=== PATIENT | female | born 1985 | race Two or more races ===

== ENCOUNTER 2017-01-06 09:10 | Observation (INO) | payer MEDICAID | END 2017-01-06 10:55 | disposition home or self-care (01) | DRG 566 | LOC: LDRP 09:10 → EDUNIT# 09:10 | PROVIDERS: ADMIT Specialist; ATTEND Specialist | DX: O24.410 Gestational diabetes mellitus in pregnancy, diet controlled (principal); Z3A.00 Weeks of gestation of pregnancy not specified | CPT/HCPCS: 76818; 81002; 82948; 82962; G0378 ==

== ENCOUNTER 2017-01-08 13:25 | Observation (INO) | payer MEDICAID | END 2017-01-08 15:15 | disposition home or self-care (01) | DRG 566 | LOC: EDUNIT# 13:25 → LDRP 13:25 | PROVIDERS: ADMIT Obstetrics & Gynecology; ATTEND Obstetrics & Gynecology | DX: O24.419 Gestational diabetes mellitus in pregnancy, unspecified control (principal); Z3A.30 30 weeks gestation of pregnancy | CPT/HCPCS: 59025; 76818; 81002; 82948; 82962; G0378 ==

== ENCOUNTER 2017-01-14 09:00 | Observation (INO) | payer MEDICAID | END 2017-01-14 11:05 | disposition home or self-care (01) | DRG 566 | LOC: LDRP 09:00 | PROVIDERS: ADMIT Specialist; ATTEND Specialist | DX: O24.419 Gestational diabetes mellitus in pregnancy, unspecified control (principal); O99.330 Smoking (tobacco) complicating pregnancy, unspecified trimester; Z3A.00 Weeks of gestation of pregnancy not specified | CPT/HCPCS: 59025; 76818; 81002; G0378 ==

== ENCOUNTER 2017-01-18 09:30 | Observation (INO) | payer MEDICAID | END 2017-01-18 11:30 | disposition home or self-care (01) | DRG 566 | LOC: LDRP 09:30 | PROVIDERS: ADMIT Specialist; ATTEND Specialist | DX: O24.419 Gestational diabetes mellitus in pregnancy, unspecified control (principal); Z79.4 Long term (current) use of insulin; Z3A.31 31 weeks gestation of pregnancy | CPT/HCPCS: 59025; 76818; 81002; 82962; G0378 ==

== ENCOUNTER 2017-01-31 09:30 | Observation (INO) | payer MEDICAID, OTHER | END 2017-01-31 11:10 | disposition home or self-care (01) | DRG 566 | LOC: LDRP 09:30 | PROVIDERS: ADMIT Obstetrics & Gynecology; ATTEND Obstetrics & Gynecology | DX: O24.419 Gestational diabetes mellitus in pregnancy, unspecified control (principal); Z3A.00 Weeks of gestation of pregnancy not specified | CPT/HCPCS: 59025; 76818; 81002; 82962; G0378 ==

== ENCOUNTER 2017-02-03 11:05 | Observation (INO) | payer MEDICAID | END 2017-02-03 12:50 | disposition home or self-care (01) | DRG 566 | LOC: LDRP 11:05 → EDUNIT# 11:05 | PROVIDERS: ADMIT Specialist; ATTEND Specialist | DX: O24.419 Gestational diabetes mellitus in pregnancy, unspecified control (principal); Z3A.33 33 weeks gestation of pregnancy | CPT/HCPCS: 59025; 76818; 81002; 82948; 82962; G0378 ==

== ENCOUNTER 2017-02-06 11:50 | Observation (INO) | payer MEDICAID, OTHER ==
[~2017-02-06] VITALS: Ht 167.6 cm; Wt 111.6 kg
[2017-02-06] MEDS ORDERED: LACTATED RINGER'S 1,000 ML IV ONE (13:00)
[2017-02-06] MEDS ORDERED: NIFEdipine 10 MG CAP PO ONE (13:00)
[2017-02-06] MEDS ORDERED: SODIUM CHLORIDE 0.9% 1,000 ML IV ONE (13:00)
[2017-02-06] MEDS ORDERED: NIFEdipine 10 MG CAP ONE (13:29)
[2017-02-06 13:47] LABS: Urine Bilirubin Negative (Negative); Urine Blood TRACE /uL (Negative); Urine Color Yellow (Yellow); Urine Glucose Normal (Normal); Urine Ketone Negative (Negative); Urine Nitrite Negative (Negative); Urine RBC 2 /hpf (0 - 4); Urine Squamous Epithelial Cell FEW /hpf (<5); Urine Urobilinogen Normal (Negative); Urine pH 6.5 (5.0-8.0)
== END 2017-02-06 14:45 | disposition home or self-care (01) | DRG 566 ==
LOC: LDRP 11:50
PROVIDERS: ADMIT Specialist; ATTEND Specialist
DX: O24.419 Gestational diabetes mellitus in pregnancy, unspecified control (principal); Z79.4 Long term (current) use of insulin; Z3A.34 34 weeks gestation of pregnancy
CPT/HCPCS: 59025; 76818; 81001; 81002; 82948; 82962; 96360; G0378; J7030

== ENCOUNTER 2017-02-10 11:21 | Observation (INO) | payer MEDICAID, OTHER | END 2017-02-10 13:20 | disposition home or self-care (01) | DRG 566 | LOC: LDRP 11:21 | PROVIDERS: ADMIT Specialist; ATTEND Specialist | DX: O24.419 Gestational diabetes mellitus in pregnancy, unspecified control (principal); Z3A.34 34 weeks gestation of pregnancy | CPT/HCPCS: 59025; 76818; 81002; G0378 ==

== ENCOUNTER 2017-02-14 09:50 | Observation (INO) | payer MEDICAID | END 2017-02-14 12:00 | disposition home or self-care (01) | DRG 566 | LOC: LDRP 09:50 | PROVIDERS: ADMIT Obstetrics & Gynecology; ATTEND Obstetrics & Gynecology | DX: O24.419 Gestational diabetes mellitus in pregnancy, unspecified control (principal); Z3A.35 35 weeks gestation of pregnancy | CPT/HCPCS: 59025; 76818; 81002; 82962; G0378 ==

== ENCOUNTER 2017-02-18 14:00 | Observation (INO) | payer MEDICAID | END 2017-02-18 16:45 | disposition home or self-care (01) | DRG 566 | LOC: LDRP 14:00 | PROVIDERS: ADMIT Specialist; ATTEND Specialist | DX: O24.419 Gestational diabetes mellitus in pregnancy, unspecified control (principal); Z3A.00 Weeks of gestation of pregnancy not specified | CPT/HCPCS: 59025; 76818; 81002; 82962; G0378 ==

== ENCOUNTER 2017-02-21 17:05 | Observation (INO) | payer MEDICAID ==
[2017-02-21 20:00] LABS: Basophils # (auto) 0 uL; Basophils % (auto) 0.2 % (0.0-2.0); Eosinophils # (auto) 0 uL; Eosinophils % (auto) 0.1 % (0.0-7.0); Hematocrit 38.7 % (36.0-46.0); Hemoglobin 13.2 g/dL (12.2-16.2); Lymphocytes # (auto) 2.3 uL; Lymphocytes % (auto) 24.2 % (10.0-50.0); Mean Corpuscular Hemoglobin 29.7 pg (28.0-32.0); Mean Corpuscular Volume 87.3 fL (80.0-100.0); Mean Platelet Volume 9.4 fL (7.4-10.4); Monocytes # (auto) 0.5 uL; Monocytes % (auto) 5.7 % (0.0-12.0); Neutrophils # (auto) 6.6 uL; Neutrophils % (auto) 69.8 % (37.0-80.0); Platelet Count (auto) 223 10^3/uL (140-450); Red Cell Distribution Width 17.8 % (11.6-16.0); White Blood Cell 9.4 10^3/uL (4.4-10.8)
[2017-02-21 20:09] LABS: Urine Bilirubin Negative (Negative); Urine Blood TRACE /uL (Negative); Urine Color Colorless (Yellow); Urine Glucose Normal (Normal); Urine Ketone Negative (Negative); Urine Nitrite Negative (Negative); Urine RBC 1 /hpf (0 - 4); Urine Squamous Epithelial Cell FEW /hpf (<5); Urine Urobilinogen Normal (Negative); Urine pH 6.5 (5.0-8.0)
[2017-02-21 20:31] LABS: Partial Thromboplastin Time 26.6 sec (22.64-33.71); Prothrombin Time 9.7 sec (9.37-12.3)
[2017-02-21 20:32] LABS: INR 0.89 (0.9-1.15)
[2017-02-21 20:34] LABS: Albumin 2.7 g/dL (3.4-5.0); BUN/Creatinine Ratio 15.9; Bilirubin, Total 0.2 mg/dL (0.2-1.0); Potassium 3.9 mmol/L (3.5-5.1); Uric Acid 5.8 mg/dL (2.6-6.0)
== END 2017-02-21 21:15 | disposition home or self-care (01) | DRG 566 ==
LOC: LDRP 17:05
PROVIDERS: ADMIT Specialist; ATTEND Specialist
DX: O24.419 Gestational diabetes mellitus in pregnancy, unspecified control (principal); Z3A.36 36 weeks gestation of pregnancy
CPT/HCPCS: 36415; 59025; 76818; 80053; 81001; 81002; 82948; 82962; 84550; 85025; 85362; 85379; 85610; 85730; G0378

== ENCOUNTER 2017-02-26 11:15 | Observation (INO) | payer MEDICAID, OTHER | END 2017-02-26 12:45 | disposition home or self-care (01) | DRG 566 | LOC: LDRP 11:15 | PROVIDERS: ADMIT Specialist; ATTEND Specialist | DX: O24.419 Gestational diabetes mellitus in pregnancy, unspecified control (principal); O62.9 Abnormality of forces of labor, unspecified; Z3A.00 Weeks of gestation of pregnancy not specified | CPT/HCPCS: 59025; 76818; 81002; 82962; G0378 ==

== ENCOUNTER 2017-02-28 19:00 | Observation (INO) | payer OTHER ==
[2017-02-28 20:55] LABS: Basophils # (auto) 0 uL; Basophils % (auto) 0.2 % (0.0-2.0); Eosinophils # (auto) 0 uL; Eosinophils % (auto) 0.4 % (0.0-7.0); Hematocrit 34.5 % (36.0-46.0); Hemoglobin 11.8 g/dL (12.2-16.2); Lymphocytes # (auto) 1.7 uL; Mean Corpuscular Hemoglobin 30.1 pg (28.0-32.0); Mean Corpuscular Hgb Conc. 34.3 g/dL (32.0-36.0); Mean Corpuscular Volume 87.9 fL (80.0-100.0); Mean Platelet Volume 9.7 fL (7.4-10.4); Monocytes # (auto) 0.5 uL; Monocytes % (auto) 6.2 % (0.0-12.0); Neutrophils % (auto) 72.2 % (37.0-80.0); Platelet Count (auto) 183 10^3/uL (140-450); Red Cell Distribution Width 18.1 % (11.6-16.0); White Blood Cell 8.3 10^3/uL (4.4-10.8)
[2017-02-28 21:06] LABS: Albumin 2.4 g/dL (3.4-5.0); BUN/Creatinine Ratio 19.4; Bilirubin, Total 0.2 mg/dL (0.2-1.0); Calcium 8.6 mg/dL (8.5-10.1); Potassium 4.1 mmol/L (3.5-5.1); Uric Acid 5.4 mg/dL (2.6-6.0)
[2017-02-28 21:09] LABS: INR 0.91 (0.9-1.15); Partial Thromboplastin Time 28.2 sec (22.64-33.71); Prothrombin Time 9.9 sec (9.37-12.3)
[2017-02-28 21:12] LABS: Urine Bilirubin Negative (Negative); Urine Blood TRACE /uL (Negative); Urine Color Yellow (Yellow); Urine Glucose Normal (Normal); Urine Ketone Negative (Negative); Urine Nitrite Negative (Negative); Urine RBC 1 /hpf (0 - 4); Urine Squamous Epithelial Cell FEW /hpf (<5); Urine Urobilinogen Normal (Negative); Urine pH 6.5 (5.0-8.0)
== END 2017-02-28 22:27 | disposition home or self-care (01) | DRG 566 ==
LOC: LDRP 19:00
PROVIDERS: ADMIT Obstetrics & Gynecology; ATTEND Obstetrics & Gynecology
DX: O62.9 Abnormality of forces of labor, unspecified (principal); O26.893 Other specified pregnancy related conditions, third trimester; R51 Headache; Z3A.37 37 weeks gestation of pregnancy
CPT/HCPCS: 36415; 59025; 76818; 80053; 81001; 81002; 82948; 82962; 83036; 84550; 85025; 85610; 85730; G0378

== ENCOUNTER 2017-03-03 11:00 | Observation (INO) | payer OTHER ==
[~2017-03-03] VITALS: Ht 167.6 cm; Wt 115.2 kg
[2017-03-03] MEDS ORDERED: PREN-96 PO (11:22)
[2017-03-03] MEDS ORDERED: INSLANTI SC ×2 (11:22)
[2017-03-03] MEDS ORDERED: GLYB5TAB8 PO (11:23)
[2017-03-03 11:57] LABS: Urine Bilirubin Negative (Negative); Urine Color Yellow (Yellow); Urine Glucose Normal (Normal); Urine Ketone Negative (Negative); Urine Mucus FEW (None Seen); Urine Nitrite Negative (Negative); Urine RBC 4 /hpf (0 - 4); Urine Squamous Epithelial Cell MOD /hpf (<5); Urine Urobilinogen Normal (Negative)
[2017-03-03 12:05] LABS: Urine Blood 2+ /uL (Negative)
== END 2017-03-03 12:45 | disposition home or self-care (01) | DRG 566 ==
LOC: LDRP 11:00
PROVIDERS: ADMIT Specialist; ATTEND Specialist
DX: O24.419 Gestational diabetes mellitus in pregnancy, unspecified control (principal); O36.8130 Decreased fetal movements, third trimester, not applicable or unspecified; Z3A.37 37 weeks gestation of pregnancy
CPT/HCPCS: 59025; 76818; 81001; 81002; 82962; 87086; G0378

== ENCOUNTER 2017-03-04 17:10 | Observation (INO) | payer OTHER ==
[~2017-03-04] VITALS: Ht 167.6 cm; Wt 116.6 kg
[~2017-03-04 17:10] MED LIST: GLYB5TAB8 PO; INSLANTI SC; PREN-96 PO
[2017-03-04] MEDS ORDERED: ACETAMINOPHEN 325 MG TAB PO PRN (18:00)
[2017-03-04 19:02] LABS: Urine Bilirubin Negative (Negative); Urine Color Yellow (Yellow); Urine Glucose Normal (Normal); Urine Ketone Negative (Negative); Urine Mucus FEW (None Seen); Urine Nitrite Negative (Negative); Urine RBC 4 /hpf (0 - 4); Urine Squamous Epithelial Cell MOD /hpf (<5); Urine Urobilinogen Normal (Negative); Urine pH 6.5 (5.0-8.0)
[2017-03-04 19:03] LABS: Urine Blood 1+ /uL (Negative)
== END 2017-03-04 20:20 | disposition home or self-care (01) | DRG 566 ==
LOC: LDRP 17:10
PROVIDERS: ADMIT Specialist; ATTEND Specialist
DX: O26.893 Other specified pregnancy related conditions, third trimester (principal); O24.419 Gestational diabetes mellitus in pregnancy, unspecified control; R51 Headache; Z3A.38 38 weeks gestation of pregnancy
CPT/HCPCS: 59025; 81001; 81002; 82948; 82962; G0378

== ENCOUNTER 2017-03-07 10:05 | Observation (INO) | payer OTHER | END 2017-03-07 11:25 | disposition home or self-care (01) | DRG 566 | LOC: LDRP 10:05 | PROVIDERS: ADMIT Specialist; ATTEND Specialist | DX: O24.419 Gestational diabetes mellitus in pregnancy, unspecified control (principal); O26.893 Other specified pregnancy related conditions, third trimester; O36.8130 Decreased fetal movements, third trimester, not applicable or unspecified; O62.9 Abnormality of forces of labor, unspecified; R11.0 Nausea; Z3A.38 38 weeks gestation of pregnancy | CPT/HCPCS: 59025; 76818; 81002; 82948; 82962; G0378 ==

== ENCOUNTER 2017-03-09 09:28 | Observation (INO) | payer OTHER | END 2017-03-09 11:30 | disposition home or self-care (01) | DRG 566 | LOC: LDRP 09:28 | PROVIDERS: ADMIT Specialist; ATTEND Specialist | DX: O24.419 Gestational diabetes mellitus in pregnancy, unspecified control (principal); O62.9 Abnormality of forces of labor, unspecified; Z3A.38 38 weeks gestation of pregnancy | CPT/HCPCS: 59025; 76818; 81002; G0378 ==

== ENCOUNTER 2018-04-30 07:45 | Observation (INO) | payer MEDICAID ==
[~2018-04-30 07:45] MED LIST changes: -INSLANTI SC
== END 2018-04-30 09:20 | disposition home or self-care (01) | DRG 566 ==
LOC: LDRP 07:45
PROVIDERS: ADMIT Obstetrics & Gynecology; ATTEND Obstetrics & Gynecology
DX: O24.419 Gestational diabetes mellitus in pregnancy, unspecified control (principal); O21.2 Late vomiting of pregnancy; Z3A.31 31 weeks gestation of pregnancy
CPT/HCPCS: 59025; 76818; 81002; 82948; 82962; G0378

== ENCOUNTER 2018-05-03 07:48 | Observation (INO) | payer MEDICAID ==
[2018-05-03] MEDS ORDERED: GLYB1.257 PO (08:02)
== END 2018-05-03 08:40 | disposition home or self-care (01) | DRG 566 ==
LOC: LDRP 07:48
PROVIDERS: ADMIT Obstetrics & Gynecology; ATTEND Obstetrics & Gynecology
DX: O24.419 Gestational diabetes mellitus in pregnancy, unspecified control (principal); Z3A.32 32 weeks gestation of pregnancy
CPT/HCPCS: 59025; 76818; 81002; 82948; G0378

== ENCOUNTER 2018-05-08 08:08 | Observation (INO) | payer MEDICAID ==
[~2018-05-08 08:08] MED LIST changes: +GLYB1.257 PO; -GLYB5TAB8 PO
== END 2018-05-08 11:00 | disposition home or self-care (01) | DRG 566 ==
LOC: LDRP 08:08
PROVIDERS: ADMIT Obstetrics & Gynecology; ATTEND Obstetrics & Gynecology
DX: O24.419 Gestational diabetes mellitus in pregnancy, unspecified control (principal); Z3A.33 33 weeks gestation of pregnancy
CPT/HCPCS: 59025; 76818; 81002; 82948; 82962; G0378

== ENCOUNTER 2018-05-11 08:19 | Observation (INO) | payer MEDICAID | END 2018-05-11 10:20 | disposition home or self-care (01) | DRG 566 | LOC: LDRP 08:19 | PROVIDERS: ADMIT Specialist; ATTEND Specialist | DX: O24.419 Gestational diabetes mellitus in pregnancy, unspecified control (principal); Z3A.33 33 weeks gestation of pregnancy | CPT/HCPCS: 59025; 76818; 81002; 82962; G0378 ==

== ENCOUNTER 2018-05-14 07:50 | Observation (INO) | payer MEDICAID | END 2018-05-14 09:40 | disposition home or self-care (01) | DRG 566 | LOC: LDRP 07:50 | PROVIDERS: ADMIT Obstetrics & Gynecology; ATTEND Obstetrics & Gynecology | DX: O24.419 Gestational diabetes mellitus in pregnancy, unspecified control (principal); Z3A.33 33 weeks gestation of pregnancy | CPT/HCPCS: 59025; 76818; 81002; 82948; 82962; G0378 ==

== ENCOUNTER 2018-05-17 08:00 | Observation (INO) | payer MEDICAID | END 2018-05-17 09:00 | disposition home or self-care (01) | DRG 566 | LOC: LDRP 08:00 | PROVIDERS: ADMIT Obstetrics & Gynecology; ATTEND Obstetrics & Gynecology | DX: O24.419 Gestational diabetes mellitus in pregnancy, unspecified control (principal); Z3A.34 34 weeks gestation of pregnancy | CPT/HCPCS: 59025; 76818; 81002; 82948; G0378 ==

== ENCOUNTER 2018-05-21 08:50 | Observation (INO) | payer MEDICAID | END 2018-05-21 10:40 | disposition home or self-care (01) | DRG 566 | LOC: LDRP 08:50 | PROVIDERS: ADMIT Specialist; ATTEND Specialist | DX: O24.419 Gestational diabetes mellitus in pregnancy, unspecified control (principal); Z3A.34 34 weeks gestation of pregnancy | CPT/HCPCS: 59025; 76818; 81002; 82962; G0378 ==

== ENCOUNTER 2018-05-25 10:02 | Observation (INO) | payer MEDICAID ==
[2018-05-25 11:35] LABS: Urine Bacteria MANY /hpf (None Seen); Urine Blood 2+ /uL (Negative); Urine Budding Yeast FEW /hpf (None Seen); Urine Mucus FEW (None Seen); Urine Specific Gravity 1.017 (1.001-1.035); Urine WBC 134 /hpf (0 - 5)
== END 2018-05-25 11:43 | disposition home or self-care (01) | DRG 566 ==
LOC: LDRP 10:02
PROVIDERS: ADMIT Specialist; ATTEND Specialist
DX: O24.419 Gestational diabetes mellitus in pregnancy, unspecified control (principal); Z3A.00 Weeks of gestation of pregnancy not specified
CPT/HCPCS: 59025; 76818; 81001; 81002; 82948; 82962; G0378

== ENCOUNTER 2018-05-28 07:45 | Observation (INO) | payer MEDICAID | END 2018-05-28 12:45 | disposition home or self-care (01) | DRG 566 | LOC: LDRP 07:45 | PROVIDERS: ADMIT Obstetrics & Gynecology; ATTEND Obstetrics & Gynecology | DX: O24.419 Gestational diabetes mellitus in pregnancy, unspecified control (principal); Z3A.35 35 weeks gestation of pregnancy | CPT/HCPCS: 59025; 76818; 81002; 82948; G0378 ==

== ENCOUNTER 2018-05-29 07:35 | Observation (INO) | payer MEDICAID | END 2018-05-29 10:40 | disposition home or self-care (01) | DRG 566 | LOC: LDRP 07:35 | PROVIDERS: ADMIT Specialist; ATTEND Specialist | DX: O24.419 Gestational diabetes mellitus in pregnancy, unspecified control (principal); O62.9 Abnormality of forces of labor, unspecified; Z3A.36 36 weeks gestation of pregnancy | CPT/HCPCS: 59025; 76818; 81002; G0378 ==

== ENCOUNTER 2018-05-31 10:30 | Observation (INO) | payer MEDICAID ==
[2018-05-31] MEDS ORDERED: GLYB1.257 PO (11:21)
== END 2018-05-31 11:35 | disposition home or self-care (01) | DRG 566 ==
LOC: LDRP 10:30
PROVIDERS: ADMIT Obstetrics & Gynecology; ATTEND Obstetrics & Gynecology
DX: O24.419 Gestational diabetes mellitus in pregnancy, unspecified control (principal); O26.893 Other specified pregnancy related conditions, third trimester; R10.30 Lower abdominal pain, unspecified; Z3A.36 36 weeks gestation of pregnancy
CPT/HCPCS: 59025; 76818; 81002; G0378

== ENCOUNTER 2018-06-03 10:00 | Observation (INO) | payer MEDICAID ==
[2018-06-03 10:30] LABS: Basophils # (auto) 0 uL; Eosinophils # (auto) 0 uL; Eosinophils % (auto) 0.4 % (0.0-7.0); Hematocrit 38.9 % (36.0-46.0); Hemoglobin 13.1 g/dL (12.2-16.2); Lymphocytes # (auto) 1.8 uL; Lymphocytes % (auto) 20.5 % (10.0-50.0); Mean Corpuscular Hemoglobin 30.7 pg (28.0-32.0); Mean Corpuscular Hgb Conc. 33.6 g/dL (32.0-36.0); Mean Corpuscular Volume 91.1 fL (80.0-100.0); Monocytes # (auto) 0.5 uL; Neutrophils # (auto) 6.4 uL; Neutrophils % (auto) 73.1 % (37.0-80.0); Platelet Count (auto) 171 10^3/uL (140-450); Red Blood Cells 4.27 10^6/uL (4.0-5.20); Red Cell Distribution Width 16.3 % (11.8-14.3); White Blood Cell 8.8 10^3/uL (4.4-10.8)
== END 2018-06-03 11:45 | disposition home or self-care (01) | DRG 566 ==
LOC: LAB 10:00 → LDRP 10:26
PROVIDERS: ADMIT Specialist; ATTEND Specialist
DX: O24.419 Gestational diabetes mellitus in pregnancy, unspecified control (principal); Z3A.00 Weeks of gestation of pregnancy not specified
CPT/HCPCS: 36415; 59025; 76818; 81002; 82948; 82962; 85025; 87081; G0378

== ENCOUNTER 2018-06-06 14:04 | Observation (INO) | payer MEDICAID | END 2018-06-06 15:30 | disposition home or self-care (01) | DRG 566 | LOC: LDRP 14:04 | PROVIDERS: ADMIT Specialist; ATTEND Specialist | DX: O24.419 Gestational diabetes mellitus in pregnancy, unspecified control (principal); O62.9 Abnormality of forces of labor, unspecified; Z3A.37 37 weeks gestation of pregnancy | CPT/HCPCS: 59025; 76818; 81002; 82962; G0378 ==

== ENCOUNTER 2018-06-09 18:33 | Inpatient (IN) | payer MEDICAID ==
[~2018-06-09] VITALS: Ht 167.6 cm; Wt 112.1 kg
[2018-06-09] MEDS ORDERED: LACTATED RINGER'S 1,000 ML IV ONE (19:06)
[2018-06-09] MEDS ORDERED: LACTATED RINGER'S 1,000 ML IV SCH ×2 (19:06→20:52)
[2018-06-09 19:48] LABS: Basophils # (auto) 0 uL; Basophils % (auto) 0.2 % (0.0-2.0); Eosinophils # (auto) 0 uL; Eosinophils % (auto) 0.1 % (0.0-7.0); Hematocrit 35.4 % (36.0-46.0); Hemoglobin 12.1 g/dL (12.2-16.2); Lymphocytes # (auto) 1.3 uL; Lymphocytes % (auto) 13.7 % (10.0-50.0); Mean Corpuscular Hemoglobin 31.4 pg (28.0-32.0); Mean Corpuscular Hgb Conc. 34.2 g/dL (32.0-36.0); Mean Corpuscular Volume 91.7 fL (80.0-100.0); Monocytes # (auto) 0.6 uL; Monocytes % (auto) 6.2 % (0.0-12.0); Neutrophils # (auto) 7.6 uL; Neutrophils % (auto) 79.8 % (37.0-80.0); Platelet Count (auto) 165 10^3/uL (140-450); Red Blood Cells 3.86 10^6/uL (4.0-5.20); Red Cell Distribution Width 16.7 % (11.8-14.3); White Blood Cell 9.5 10^3/uL (4.4-10.8)
[2018-06-09 20:03] LABS: Albumin 2.4 g/dL (3.4-5.0); BUN/Creatinine Ratio 16.5; Calcium 7.8 mg/dL (8.5-10.1); INR 0.9 (0.9-1.15); Partial Thromboplastin Time 25.2 sec (23.78-33.04); Potassium 4.1 mmol/L (3.5-5.1); Prothrombin Time 9.7 sec (9.27-12.13)
[2018-06-09 20:05] LABS: Bilirubin, Total 0.1 mg/dL (0.2-1.0); Total Protein 6.1 g/dL (6.4-8.2)
[2018-06-09] MEDS ORDERED: ACCU-CHEK COMFORT CURVE STRIP VI SCH (20:30)
[2018-06-09] MEDS ORDERED: LACT. RINGERS/OXYTOCIN 20UNITS 1,000 ML IV SCH (20:52)
[2018-06-09] MEDS ORDERED: METHYLERGONOVINE MALEATE 0.2 MG/ML AMP IM PRN (21:00)
[2018-06-09] MEDS ORDERED: PHISODERM TOP SOLN 240ML BTL TOP PRN (21:00)
[2018-06-09] MEDS ORDERED: LIDOCAINE 2% (LOCAL ANESTH.) PF 5ml SDV IJ ONE (21:00)
[2018-06-09] MEDS ORDERED: PROMETHAZINE HCL 25 MG/ML 1ML IV PRN (21:00)
[2018-06-09] MEDS ORDERED: WITCH HAZEL-GLYCERIN PAD TOP PRN (21:00)
[2018-06-09] MEDS ORDERED: PENICILLIN G POT 5MIL/D5 50ML 50 ML IV ONE (21:00)
[2018-06-09] MEDS ORDERED: DERMOPLAST 60ML BOTTLE TOP PRN (21:00)
[2018-06-09] MEDS ORDERED: NALBUPHINE HCL 10 MG/1ml INJECTION IM PRN (21:00)
[2018-06-09 21:28] LABS: Urine Bacteria FEW /hpf (None Seen); Urine Blood 3+ /uL (Negative); Urine Specific Gravity 1.017 (1.001-1.035); Urine WBC 521 /hpf (0 - 5)
[2018-06-10] MEDS ORDERED: ePHEDrine SULFATE 50 MG/ML AMP IV ONE (01:00)
[2018-06-10] MEDS ORDERED: fentaNYL CITRATE 100 MCG/2 ML VL IV ONE (01:00)
[2018-06-10] MEDS ORDERED: NALOXONE HCL 0.4 MG/ML VIAL IV ONE (01:00)
[2018-06-10] MEDS ORDERED: fentaNYL W ROPIVACAINE 150 ML EPI SCH (01:00)
[2018-06-10] MEDS ORDERED: PENICILLIN G POTASSIUM 2,500,000 UNITS in D5W 5% 50 ML IV SCH (01:00)
[2018-06-10] MEDS ORDERED: LIDOCAINE HCL 2 %PF INJ 10ML AMP IJ ONE (01:00)
[2018-06-10] MEDS ORDERED: LIDOCAINE 2% (LOCAL ANESTH.) PF 5ml SDV ONE (01:21)
[2018-06-10] MEDS ORDERED: LACT. RINGERS/OXYTOCIN 20UNITS 500 ML IV ONE (03:20)
[2018-06-10] MEDS ORDERED: ACETAMINOPHEN 325 MG TAB PO PRN (03:30)
[2018-06-10] MEDS ORDERED: LACT. RINGERS/OXYTOCIN 20UNITS 1,000 ML IV SCH (04:20)
[2018-06-10 07:05] VITALS: BP 118/67
[2018-06-10] MEDS: IBUPROFEN 600 MG TAB PO PRN ×2 (08:27→15:33)
[2018-06-10 11:00] VITALS: BP 117/56
[2018-06-10] MEDS: ACCU-CHEK COMFORT CURVE STRIP VI SCH ×3 (11:49→21:46)
[2018-06-10 15:15] VITALS: BP 126/64
[2018-06-10 19:00] VITALS: BP 114/61
[2018-06-10] MEDS ORDERED: TETANUS-DIPTH-ACEL PERTUSSIS 0.5ML SYRG IM ONE (19:15)
[2018-06-10 23:00] VITALS: BP 130/61
[2018-06-11 03:00] VITALS: BP 142/70
[2018-06-11] MEDS: IBUPROFEN 600 MG TAB PO PRN (03:07)
[2018-06-11 06:09] LABS: RPR Non Reactive (Non Reactive)
[2018-06-11 07:00] VITALS: BP 115/58
[2018-06-11] MEDS: ACCU-CHEK COMFORT CURVE STRIP VI SCH ×2 (07:11→11:30)
[2018-06-11 10:55] VITALS: BP 118/58
[2018-06-11 11:00] VITALS: BP 118/58
== END 2018-06-11 11:00 | disposition home or self-care (01) | DRG 541 ==
LOC: OBSVTOIN 18:33 → LDRP 18:33
PROVIDERS: ADMIT Obstetrics & Gynecology; ATTEND Obstetrics & Gynecology
PROC: 10E0XZZ Delivery of Products of Conception, External Approach (ICD-10-PCS; principal; 2018-06-10)
PROC: 0HQ9XZZ Repair Perineum Skin, External Approach (ICD-10-PCS; 2018-06-10)
PROC: 10D17ZZ Extraction of Products of Conception, Retained, Via Natural or Artificial Opening (ICD-10-PCS; 2018-06-10)
DX: O69.81X0 Labor and delivery complicated by cord around neck, without compression, not applicable or unspecified (principal); O24.92 Unspecified diabetes mellitus in childbirth; O73.0 Retained placenta without hemorrhage; O70.0 First degree perineal laceration during delivery; Z37.0 Single live birth; Z3A.37 37 weeks gestation of pregnancy
CPT/HCPCS: 36415; 59025; 59409; 76818; 76856; 80053; 81001; 81002; 82948; 82962; 85025; 85610; 85730; 86592; 86850; 86900; 86901; 90715; 96372; G0378; J2001; J2540; J2590; J3010; J7060

== ENCOUNTER 2020-04-24 13:29 | Observation (INO) | payer MEDICAID ==
[~2020-04-24 13:29] MED LIST changes: -GLYB1.257 PO
== END 2020-04-24 14:25 | disposition home or self-care (01) | DRG 566 ==
LOC: LDRP 13:29
PROVIDERS: ADMIT Specialist; ATTEND Specialist
DX: O36.8120 Decreased fetal movements, second trimester, not applicable or unspecified (principal); O09.512 Supervision of elderly primigravida, second trimester; Z3A.27 27 weeks gestation of pregnancy
CPT/HCPCS: 59025; 81002; 82948; G0378

== ENCOUNTER 2020-05-19 08:21 | Observation (INO) | payer MEDICAID ==
[2020-05-19] MEDS ORDERED: METF-370 PO (09:23)
[2020-05-19] MEDS ORDERED: GLYB2.5T8 PO (09:24)
== END 2020-05-19 09:22 | disposition home or self-care (01) ==
LOC: LDRP 08:21
PROVIDERS: ADMIT Obstetrics & Gynecology; ATTEND Obstetrics & Gynecology
DX: O24.414 Gestational diabetes mellitus in pregnancy, insulin controlled (principal); Z3A.31 31 weeks gestation of pregnancy
CPT/HCPCS: 59025; 76818; 81002; 82962; G0378

== ENCOUNTER 2020-05-23 08:22 | Observation (INO) | payer MEDICAID ==
[~2020-05-23 08:22] MED LIST changes: +GLYB2.5T8 PO; +METF-370 PO
== END 2020-05-23 10:10 | disposition home or self-care (01) ==
LOC: LDRP 08:22
PROVIDERS: ADMIT Specialist; ATTEND Specialist
DX: O24.419 Gestational diabetes mellitus in pregnancy, unspecified control (principal); Z79.84 Long term (current) use of oral hypoglycemic drugs; Z3A.31 31 weeks gestation of pregnancy
CPT/HCPCS: 59025; 76818; 81002; 82948; 82962; G0378

== ENCOUNTER 2020-05-26 08:22 | Observation (INO) | payer MEDICAID | END 2020-05-26 10:30 | disposition home or self-care (01) | LOC: LDRP 08:22 | PROVIDERS: ADMIT Specialist; ATTEND Specialist | DX: O24.419 Gestational diabetes mellitus in pregnancy, unspecified control (principal); Z3A.32 32 weeks gestation of pregnancy | CPT/HCPCS: 59025; 76818; 81002; 82948; 82962; G0378 ==

== ENCOUNTER 2020-05-30 10:14 | Observation (INO) | payer MEDICAID | END 2020-05-30 12:38 | disposition home or self-care (01) | LOC: LDRP 10:14 | PROVIDERS: ADMIT Specialist; ATTEND Specialist | DX: O24.415 Gestational diabetes mellitus in pregnancy, controlled by oral hypoglycemic drugs (principal); Z3A.32 32 weeks gestation of pregnancy | CPT/HCPCS: 59025; 76818; 81002; 82948; 82962; G0378 ==

== ENCOUNTER 2020-06-02 08:14 | Observation (INO) | payer MEDICAID | END 2020-06-02 09:30 | disposition home or self-care (01) | LOC: LDRP 08:14 | PROVIDERS: ADMIT Specialist; ATTEND Specialist | DX: O24.415 Gestational diabetes mellitus in pregnancy, controlled by oral hypoglycemic drugs (principal); Z3A.33 33 weeks gestation of pregnancy | CPT/HCPCS: 59025; 76818; 81002; 82948; 82962; G0378 ==

== ENCOUNTER 2020-06-06 12:43 | Observation (INO) | payer MEDICAID | END 2020-06-06 14:10 | disposition home or self-care (01) | LOC: LDRP 12:43 | PROVIDERS: ADMIT Specialist; ATTEND Specialist | DX: O24.415 Gestational diabetes mellitus in pregnancy, controlled by oral hypoglycemic drugs (principal); Z3A.33 33 weeks gestation of pregnancy | CPT/HCPCS: 59025; 76818; 81002; 82948; 82962; G0378 ==

== ENCOUNTER 2020-06-13 08:29 | Observation (INO) | payer MEDICAID ==
[~2020-06-13] VITALS: Ht 167.6 cm; Wt 114.3 kg
[2020-06-13] MEDS ORDERED: CEFTRIAXONE SODIUM 2 GM in D5W 5% 50 ML IV ONE (10:45)
== END 2020-06-13 13:33 | disposition home or self-care (01) ==
LOC: LDRP 08:29
PROVIDERS: ADMIT Specialist; ATTEND Specialist
DX: O24.415 Gestational diabetes mellitus in pregnancy, controlled by oral hypoglycemic drugs (principal); O26.893 Other specified pregnancy related conditions, third trimester; R82.998 Other abnormal findings in urine; O09.523 Supervision of elderly multigravida, third trimester; Z3A.34 34 weeks gestation of pregnancy
CPT/HCPCS: 59025; 76818; 81002; 82948; 82962; 96365; G0378; J0696; J7030; J7060; 96360

== ENCOUNTER 2020-06-16 08:10 | Observation (INO) | payer MEDICAID ==
[2020-06-16] MEDS ORDERED: CEPH250C PO (09:08)
== END 2020-06-16 09:30 | disposition home or self-care (01) ==
LOC: LDRP 08:10
PROVIDERS: ADMIT Specialist; ATTEND Specialist
DX: O24.415 Gestational diabetes mellitus in pregnancy, controlled by oral hypoglycemic drugs (principal); O62.9 Abnormality of forces of labor, unspecified; O26.893 Other specified pregnancy related conditions, third trimester; N89.8 Other specified noninflammatory disorders of vagina; Z3A.35 35 weeks gestation of pregnancy; Z79.899 Other long term (current) drug therapy
CPT/HCPCS: 59025; 76818; 81002; 82948; 82962; G0378

== ENCOUNTER 2020-06-20 08:22 | Observation (INO) | payer MEDICAID ==
[~2020-06-20] VITALS: Ht 167.6 cm; Wt 115.2 kg
[~2020-06-20 08:22] MED LIST changes: +CEPH250C PO
== END 2020-06-20 10:01 | disposition home or self-care (01) ==
LOC: LDRP 08:22
PROVIDERS: ADMIT Obstetrics & Gynecology; ATTEND Obstetrics & Gynecology
DX: O24.415 Gestational diabetes mellitus in pregnancy, controlled by oral hypoglycemic drugs (principal); O62.9 Abnormality of forces of labor, unspecified; Z3A.35 35 weeks gestation of pregnancy; Z79.899 Other long term (current) drug therapy
CPT/HCPCS: 59025; 76818; 81002; 82948; 82962; G0378

== ENCOUNTER 2020-06-23 08:42 | Observation (INO) | payer MEDICAID | END 2020-06-23 09:40 | disposition home or self-care (01) | LOC: LDRP 08:42 | PROVIDERS: ADMIT Obstetrics & Gynecology; ATTEND Obstetrics & Gynecology | DX: O24.419 Gestational diabetes mellitus in pregnancy, unspecified control (principal); Z3A.35 35 weeks gestation of pregnancy | CPT/HCPCS: 59025; 76818; 81002; 82948; 82962; G0378 ==

== ENCOUNTER 2020-06-27 08:50 | Observation (INO) | payer MEDICAID | END 2020-06-27 09:43 | disposition home or self-care (01) | LOC: LDRP 08:50 | PROVIDERS: ADMIT Specialist; ATTEND Specialist | DX: O24.419 Gestational diabetes mellitus in pregnancy, unspecified control (principal); Z3A.35 35 weeks gestation of pregnancy | CPT/HCPCS: 59025; 76818; 81002; 82948; 82962; G0378 ==

== ENCOUNTER 2020-06-30 09:25 | Observation (INO) | payer MEDICAID ==
[~2020-06-30 09:25] MED LIST changes: -CEPH250C PO
== END 2020-06-30 10:14 | disposition home or self-care (01) ==
LOC: LDRP 09:25
PROVIDERS: ADMIT Specialist; ATTEND Specialist
DX: O24.419 Gestational diabetes mellitus in pregnancy, unspecified control (principal); Z3A.36 36 weeks gestation of pregnancy
CPT/HCPCS: 59025; 76818; 81002; 82962; G0378

== ENCOUNTER 2020-07-02 12:13 | Observation (INO) | payer MEDICAID | END 2020-07-02 14:25 | disposition home or self-care (01) | LOC: LDRP 12:13 | PROVIDERS: ADMIT Obstetrics & Gynecology; ATTEND Obstetrics & Gynecology | DX: O24.419 Gestational diabetes mellitus in pregnancy, unspecified control (principal); O13.3 Gestational [pregnancy-induced] hypertension without significant proteinuria, third trimester; Z3A.36 36 weeks gestation of pregnancy | CPT/HCPCS: 59025; 76818; 81002; 82948; 82962; G0378 ==

== ENCOUNTER 2020-07-04 16:23 | Observation (INO) | payer MEDICAID ==
[2020-07-04 19:13] LABS: Urine Bacteria NONE SEEN /hpf (None Seen); Urine Blood 2+ /uL (Negative); Urine Mucus FEW (None Seen); Urine Specific Gravity 1.021 (1.001-1.035); Urine WBC 2 /hpf (0 - 5)
== END 2020-07-04 19:15 | disposition home or self-care (01) ==
LOC: LDRP 16:23
PROVIDERS: ADMIT Specialist; ATTEND Specialist
DX: O24.415 Gestational diabetes mellitus in pregnancy, controlled by oral hypoglycemic drugs (principal); O42.913 Preterm premature rupture of membranes, unspecified as to length of time between rupture and onset of labor, third trimester; O62.9 Abnormality of forces of labor, unspecified; O09.523 Supervision of elderly multigravida, third trimester; Z3A.36 36 weeks gestation of pregnancy
CPT/HCPCS: 59025; 76818; 81001; 81002; 82948; 82962; 84112; G0378; Q0114

== ENCOUNTER 2020-07-06 16:10 | Observation (INO) | payer MEDICAID | END 2020-07-06 17:55 | disposition home or self-care (01) | LOC: LDRP 16:10 | PROVIDERS: ADMIT Specialist; ATTEND Specialist | DX: O24.419 Gestational diabetes mellitus in pregnancy, unspecified control (principal); O12.13 Gestational proteinuria, third trimester; Z3A.37 37 weeks gestation of pregnancy | CPT/HCPCS: 59025; 76818; 81002; 82948; 82962; G0378 ==

== ENCOUNTER 2020-07-08 16:10 | Observation (INO) | payer MEDICAID ==
[2020-07-08 18:40] LABS: Creatinine Clearance, Urine 112.56 mL/min (75-115)
== END 2020-07-08 19:11 | disposition home or self-care (01) ==
LOC: LDRP 16:10
PROVIDERS: ADMIT Obstetrics & Gynecology; ATTEND Obstetrics & Gynecology
DX: O24.419 Gestational diabetes mellitus in pregnancy, unspecified control (principal); O13.3 Gestational [pregnancy-induced] hypertension without significant proteinuria, third trimester; Z3A.37 37 weeks gestation of pregnancy
CPT/HCPCS: 59025; 81002; 82575; 82948; 82962; 84156; G0378

== ENCOUNTER 2020-07-12 11:18 | Observation (INO) | payer MEDICAID ==
[2020-07-12 13:13] LABS: Urine Bacteria FEW /hpf (None Seen); Urine Blood 2+ /uL (Negative); Urine Mucus FEW (None Seen); Urine Specific Gravity 1.018 (1.001-1.035); Urine WBC 3 /hpf (0 - 5)
[2020-07-12 13:28] LABS: Albumin 2.7 g/dL (3.4-5.0); Calcium 8.4 mg/dL (8.5-10.1)
[2020-07-12 13:30] LABS: Protein, Urine 63.3 mg/dL (0.0-11.9)
[2020-07-12 13:32] LABS: BUN/Creatinine Ratio 19.3; Bilirubin, Total 0.2 mg/dL (0.2-1.0); Total Protein 6.6 g/dL (6.4-8.2); Uric Acid 5.6 mg/dL (2.6-6.0)
[2020-07-12 13:42] LABS: Basophils # (auto) 0 10 ^3/uL (0-0.2); Basophils % (auto) 0.2 % (0.0-2.0); Eosinophils # (auto) 0 10 ^3/uL (0-0.8); Eosinophils % (auto) 0.2 % (0.0-7.0); Hematocrit 37.5 % (36.0-46.0); Hemoglobin 12.8 g/dL (12.2-16.2); Lymphocytes # (auto) 1.3 10 ^3/uL (0.4-5.4); Lymphocytes % (auto) 16.6 % (10.0-50.0); Mean Corpuscular Hemoglobin 30.3 pg (28.0-32.0); Mean Corpuscular Hgb Conc. 34.2 g/dL (32.0-36.0); Mean Corpuscular Volume 88.7 fL (80.0-100.0); Monocytes # (auto) 0.5 10 ^3/uL (0-1.3); Monocytes % (auto) 5.7 % (0.0-12.0); Neutrophils # (auto) 6.2 10 ^3/uL (1.6-8.6); Neutrophils % (auto) 77.3 % (37.0-80.0); Platelet Count (auto) 158 10^3/uL (140-450); Red Blood Cells 4.23 10^6/uL (4.0-5.20); Red Cell Distribution Width 16.9 % (11.8-14.3); White Blood Cell 8.1 10^3/uL (4.4-10.8)
== END 2020-07-12 14:36 | disposition home or self-care (01) ==
LOC: LDRP 11:18
PROVIDERS: ADMIT Obstetrics & Gynecology; ATTEND Obstetrics & Gynecology
DX: O24.419 Gestational diabetes mellitus in pregnancy, unspecified control (principal); O13.3 Gestational [pregnancy-induced] hypertension without significant proteinuria, third trimester; O62.9 Abnormality of forces of labor, unspecified; Z3A.37 37 weeks gestation of pregnancy; Z79.899 Other long term (current) drug therapy
CPT/HCPCS: 36415; 59025; 76818; 80053; 81001; 81002; 82570; 84156; 84550; 85025; 86850; 86900; 86901; 87086; G0378

== ENCOUNTER 2020-07-13 15:42 | Observation (INO) | payer MEDICAID ==
[2020-07-13] MEDS ORDERED: LACTATED RINGER'S 1,000 ML IV ONE (16:15)
== END 2020-07-13 18:28 | disposition home or self-care (01) ==
LOC: LDRP 15:42
PROVIDERS: ADMIT Obstetrics & Gynecology; ATTEND Obstetrics & Gynecology
DX: O24.419 Gestational diabetes mellitus in pregnancy, unspecified control (principal); Z20.828 Contact with and (suspected) exposure to other viral communicable diseases; O62.9 Abnormality of forces of labor, unspecified; Z3A.38 38 weeks gestation of pregnancy
CPT/HCPCS: 59025; 76815; 81002; 82948; 82962; 96360; 96361; G0378; U0003

== ENCOUNTER 2020-07-14 04:47 | Inpatient (IN) | payer MEDICAID ==
[~2020-07-14] VITALS: Ht 167.6 cm; Wt 116.6 kg
[2020-07-14] MEDS ORDERED: CARBOPROST TROMETHAMINE 250 MCG/1ML VIAL IM PRN (05:15)
[2020-07-14] MEDS ORDERED: LIDOCAINE 2%HCL (LOCAL ANESTH.) INJ 20ML MDV ID ONE (05:15)
[2020-07-14] MEDS ORDERED: METHYLERGONOVINE MALEATE 0.2 MG/ML AMP IM PRN (05:15)
[2020-07-14] MEDS ORDERED: DERMOPLAST 60ML BOTTLE TOP PRN (05:15)
[2020-07-14] MEDS ORDERED: LACT. RINGERS/OXYTOCIN 20UNITS 1,000 ML IV SCH (05:15)
[2020-07-14] MEDS ORDERED: LACTATED RINGER'S 1,000 ML IV SCH (05:15)
[2020-07-14] MEDS ORDERED: PHISODERM TOP SOLN 240ML BTL TOP PRN (05:15)
[2020-07-14] MEDS ORDERED: miSOPROStol 100 mcg TAB PR ONE (05:45)
[2020-07-14] MEDS ORDERED: miSOPROStol 100 mcg TAB SL ONE (05:45)
[2020-07-14 05:55] LABS: INR 0.92 (0.9-1.15)
[2020-07-14] MEDS ORDERED: ACCU-CHEK COMFORT CURVE STRIP VI SCH (06:00)
[2020-07-14 06:15] LABS: Urine Bacteria NONE SEEN /hpf (None Seen); Urine Blood 2+ /uL (Negative); Urine Specific Gravity 1.014 (1.001-1.035); Urine WBC 3 /hpf (0 - 5)
[2020-07-14] MEDS: WITCH HAZEL-GLYCERIN PAD TOP PRN (06:24)
[2020-07-14 06:30] LABS: Alcohol, Urine < 3.0 mg/dL (0-10); Amphetamine Screen, Urine NEGATIVE (NEGATIVE); Barbiturate Scree,Urine NEGATIVE (NEGATIVE); Benzodiazephine Screen, Urine NEGATIVE (NEGATIVE); Cannabinoid Screen, Urine NEGATIVE (NEGATIVE); Cocaine Screen, Urine NEGATIVE (NEGATIVE); Opiate Scree,Urine NEGATIVE (NEGATIVE); Phencyclidine Screen, Urine NEGATIVE (NEGATIVE)
[2020-07-14] MEDS ORDERED: miSOPROStol 50 MCG per PRE-CUT 1/2 TAB PO PRN (07:30)
[2020-07-14] MEDS ORDERED: NALOXONE HCL 0.4 MG/ML VIAL IV ONE ×2 (09:15→10:15)
[2020-07-14] MEDS ORDERED: ROPIVACAINE HCL 100 ML EPI SCH ×2 (09:15→10:15)
[2020-07-14] MEDS ORDERED: LACTATED RINGER'S 1,000 ML IV ONE (09:15)
[2020-07-14] MEDS ORDERED: LIDOCAINE 2%HCL (LOCAL ANESTH.) INJ 20ML MDV IJ ONE (09:15)
[2020-07-14] MEDS ORDERED: fentaNYL CITRATE 100 MCG/2 ML VL IV ONE ×2 (09:15→10:15)
[2020-07-14] MEDS ORDERED: ePHEDrine SULFATE 50 MG/ML AMP IV ONE ×2 (09:15→10:15)
[2020-07-14 09:23] LABS: Albumin 2.4 g/dL (3.4-5.0); Calcium 8.3 mg/dL (8.5-10.1); Potassium 4.3 mmol/L (3.5-5.1)
[2020-07-14 09:24] LABS: Basophils # (auto) 0 10 ^3/uL (0-0.2); Basophils % (auto) 0.2 % (0.0-2.0); Eosinophils # (auto) 0 10 ^3/uL (0-0.8); Eosinophils % (auto) 0.3 % (0.0-7.0); Hematocrit 35.2 % (36.0-46.0); Hemoglobin 11.8 g/dL (12.2-16.2); Lymphocytes # (auto) 1.4 10 ^3/uL (0.4-5.4); Lymphocytes % (auto) 18.5 % (10.0-50.0); Mean Corpuscular Hemoglobin 30.3 pg (28.0-32.0); Mean Corpuscular Hgb Conc. 33.7 g/dL (32.0-36.0); Mean Corpuscular Volume 90.1 fL (80.0-100.0); Monocytes # (auto) 0.5 10 ^3/uL (0-1.3); Monocytes % (auto) 6.3 % (0.0-12.0); Neutrophils # (auto) 5.6 10 ^3/uL (1.6-8.6); Neutrophils % (auto) 74.7 % (37.0-80.0); Platelet Count (auto) 159 10^3/uL (140-450); Red Blood Cells 3.91 10^6/uL (4.0-5.20); Red Cell Distribution Width 17.9 % (11.8-14.3); White Blood Cell 7.5 10^3/uL (4.4-10.8)
[2020-07-14 09:27] LABS: BUN/Creatinine Ratio 26.3; Bilirubin, Total 0.2 mg/dL (0.2-1.0); Total Protein 5.8 g/dL (6.4-8.2); Uric Acid 5.1 mg/dL (2.6-6.0)
[2020-07-14] MEDS ORDERED: LIDOCAINE HCL 2 %PF INJ 10ML AMP IJ ONE ×2 (09:45→10:15)
[2020-07-14] MEDS: D5W/LACTATED RINGERS 1,000 ML IV SCH ×2 (10:25→15:58)
[2020-07-14] MEDS: IBUPROFEN 600 MG TAB PO PRN (19:04)
[2020-07-14 21:00] VITALS: BP 134/69
--- NOTE | 2020-07-14 21:15 | NUR ---
Ambulation: Patient OOB with standby assistance by RN. Patient ambulated to bathroom with steady gait. Patient able to void 500 ml of clear yellow urine without difficulty. Pericare teaching provided with returned demonstration by patient. Clean gown provided and bed linen changed. Patient ambulated back to bed with steady gait and no distress noted.
[2020-07-14 23:00] VITALS: BP 136/69
[2020-07-15] MEDS: IBUPROFEN 600 MG TAB PO PRN ×2 (01:30→14:16)
[2020-07-15 03:00] VITALS: BP 141/68
[2020-07-15 06:06] LABS: RPR Non Reactive (Non Reactive)
--- NOTE | 2020-07-15 06:30 | NUR ---
Assumed care of patient, MOB awake and alert x 4. No S/S of distress or shortness of breath, on room air. Denies pain at this time. Patient educated on S/S of heavy bleeding and hemorrhage, patient verbalizes understanding. Full assessment done, see interventions. Instructed on plan of care and to call for assistance as needed, will continue to monitor for changes.
[2020-07-15 07:00] VITALS: BP 123/60
[2020-07-15 11:00] VITALS: BP 123/75
--- NOTE | 2020-07-15 12:00 | NUR ---
IV removal IV DC'd with sterile technique, catheter fully intact. Pressure dressing applied to site. Patient tolerated procedure well. Patient has one saline lock intact IV remaining and will keep in until discharge, pt verbalizes plan of care.
[2020-07-15] MEDS: WITCH HAZEL-GLYCERIN PAD TOP PRN (14:16)
[2020-07-15 15:00] VITALS: BP 131/77
--- NOTE | 2020-07-15 18:45 | NUR ---
DR. TURCIOS WAS CALLED TO RECEIVE DISCHARGE ORDER, FULL SBAR GIVEN. MD WISHES TO NOT DISCHARGE PT AT THIS TIME AND WOULD LIKE TO SEE HER TOMORROW MORNING PRIOR TO DISCHARGE. POC DISCUSSED WITH PT, PT VERBALIZED UNDERSTANDING.
[2020-07-15 19:15] VITALS: BP 134/76
[2020-07-15 22:59] VITALS: BP 127/91
[2020-07-16] MEDS: IBUPROFEN 600 MG TAB PO PRN (01:41)
[2020-07-16 02:50] VITALS: BP 126/66
[2020-07-16 07:20] VITALS: BP 139/87
--- NOTE | 2020-07-16 07:20 | NUR ---
TRANSCUTANEOUS DRAGOR DONE ON THE INFANT, MEGAN LEVEL AT 7.5MG/DL. LOW INTERMEDIATE ON MEGAN TOOL.
--- NOTE | 2020-07-16 10:30 | NUR ---
Discharge: Discharge instructions given as ordered. Pt encouraged to follow up with [facility] as instructed. All questions and concerns addressed. Patient verbalized understanding. Medication reconciliation completed and copy given to patient. Patient encouraged to prepare to depart unit.
--- NOTE | 2020-07-16 10:50 | NUR ---
Discharge: Patient taken to vehicle via wheelchair with all personal belongings, accompanied by staff and family member. No distress noted at time of departure, no adverse changes in status since initial assessment.
[2020-07-16 11:00] VITALS: BP 132/86
[2020-07-16 11:01] VITALS: BP 120/76
== END 2020-07-16 10:50 | disposition home or self-care (01) | DRG 560 ==
LOC: LDRP 04:47
PROVIDERS: ADMIT Specialist; ATTEND Specialist
PROC: 3E0P7VZ Introduction of Hormone into Female Reproductive, Via Natural or Artificial Opening (ICD-10-PCS; principal; 2020-07-14)
PROC: 10E0XZZ Delivery of Products of Conception, External Approach (ICD-10-PCS; 2020-07-14)
PROC: 3E0R3BZ Introduction of Anesthetic Agent into Spinal Canal, Percutaneous Approach (ICD-10-PCS; 2020-07-14)
PROC: 00HU33Z Insertion of Infusion Device into Spinal Canal, Percutaneous Approach (ICD-10-PCS; 2020-07-14)
PROC: 10H07YZ Insertion of Other Device into Products of Conception, Via Natural or Artificial Opening (ICD-10-PCS; 2020-07-14)
DX: O36.63X0 Maternal care for excessive fetal growth, third trimester, not applicable or unspecified (principal); O24.425 Gestational diabetes mellitus in childbirth, controlled by oral hypoglycemic drugs; Z3A.39 39 weeks gestation of pregnancy; Z37.0 Single live birth; O69.81X0 Labor and delivery complicated by cord around neck, without compression, not applicable or unspecified
CPT/HCPCS: 36415; 59025; 59409; 62282; 80053; 80307; 81001; 82948; 82962; 84112; 84550; 85025; 85362; 85384; 85610; 85730; 86592; 86850; 86900; 86901; 86920; 94760; 94762; 96360; 96361; 96365; 96366; G0378; J2590